=== PATIENT | female | born 1990 | race African-American/Black ===

== ENCOUNTER 2018-08-19 13:45 | Emergency (ER) | payer MEDICAID, OTHER ==
[~2018-08-19] VITALS: Ht 172.7 cm; Wt 77.0 kg
[2018-08-19 20:54] LABS: BASOPHILS % 0.2 % (0.0-2.0); EOSINOPHILS % 1.4 % (0.0-5.0); HEMATOCRIT. 37.2 % (36.0-48.0); HEMOGLOBIN. 12.2 g/dL (12.0-16.0); LYMPHOCYTES % 20.5 % (20.0-50.0); MEAN CORPUSCULAR HEMOGLOBIN 27.2 pg (28.0-32.0); MEAN CORPUSCULAR VOLUME 82.7 fL (81.0-99.0); NEUTROPHILS % 68.9 % (40.0-76.0); PLATELET 246 x1000/uL (130-400); RED CELL DISTRIBUTION WIDTH 14.1 % (11.6-14.6)
[2018-08-19 20:59] LABS: CHLORIDE 107 mEq/L (98-107)
[2018-08-19 21:25] LABS: B-HCG QUANTITATIVE 2241 mIU/mL (<3)
[2018-08-19] MEDS ORDERED: POTASSIUM CHLORIDE 20MEQ TABLET SR PO ONE (21:30)
[2018-08-19 21:54] LABS: CLARITY URINE TURBID (CLEAR); KETONES URINE 3+ (NEGATIVE); LEUKOCYTE ESTERASE URINE 3+ (NEGATIVE); NITRITE URINE POSITIVE (NEGATIVE); OCCULT BLOOD URINE 3+ (NEGATIVE); PROTEIN URINE 2+ (NEGATIVE)
[2018-08-19 22:03] LABS: COLOR URINE BLOODY (YELLOW)
[2018-08-19 23:07] VITALS: BP 130/69
== END 2018-08-19 23:25 | disposition home or self-care (01) ==
LOC: ER 13:45
DX: O03.9 Complete or unspecified spontaneous abortion without complication (principal); O26.891 Other specified pregnancy related conditions, first trimester; F17.210 Nicotine dependence, cigarettes, uncomplicated; Z3A.12 12 weeks gestation of pregnancy
CPT/HCPCS: 36415; 76801; 76817; 80053; 81003; 84702; 85025; 86850; 86900; 86901; 99284; 99406; Z7610

== ENCOUNTER 2019-12-02 05:07 | Inpatient (IN) | payer OTHER ==
[~2019-12-02] VITALS: Ht 174 cm; Wt 107.0 kg
[2019-12-02] MEDS ORDERED: PNV1TABL50 PO (05:16)
[2019-12-02] MEDS ORDERED: DEXT 5%/LR + PITOCIN 20UNITS/L 1,000 ML IV SCH ×2 (05:42→07:22)
[2019-12-02] MEDS ORDERED: LACTATED RINGERS 1,000 ML IV SCH (05:42)
[2019-12-02] MEDS ORDERED: MISOPROSTOL 100MCG TABLET VG SCH (05:45)
[2019-12-02] MEDS ORDERED: NALOXONE HCL 0.4 MG/ML 1ML VIAL IM PRN (05:45)
[2019-12-02] MEDS ORDERED: BUTORPHANOL TARTRATE 2 MG/ML VIAL IV PRN (05:45)
[2019-12-02] MEDS ORDERED: LIDOCAINE HCL 1% 20ML VIAL (Pyxis) INJ INFIL SCH (05:45)
[2019-12-02] MEDS ORDERED: MINERAL OIL 30ML BOTTLE TOP NR (05:45)
[2019-12-02] MEDS ORDERED: PENICILLIN G POTASSIUM 5 MMU in DEXT 5% WATER 100 ML IV NR (06:00)
[2019-12-02 06:27] LABS: CHLORIDE 110 mEq/L (98-107); CLARITY URINE CLOUDY (CLEAR); COLOR URINE YELLOW (YELLOW); KETONES URINE NEGATIVE (NEGATIVE); LEUKOCYTE ESTERASE URINE 2+ (NEGATIVE); NITRITE URINE NEGATIVE (NEGATIVE); OCCULT BLOOD URINE 3+ (NEGATIVE); PH URINE 5.5 (4.5-8.0); PROTEIN URINE TRACE (NEGATIVE); SPECIFIC GRAVITY URINE 1.018 (1.005-1.030); UROBILINOGEN URINE 0.2 E.U./dL (0.2-1.0)
[2019-12-02 06:31] LABS: INR 0.9; PARTIAL THROMBOPLASTIN TIME 24.5 sec (23.4-31.0); PROTHROMBIN TIME 9.8 sec (9.6-11.0)
[2019-12-02 06:55] LABS: *AMPHETAMINES SCREEN URINE NEGATIVE (NEGATIVE); *BARBITURATES SCREEN URINE NEGATIVE (NEGATIVE)
[2019-12-02 06:56] LABS: *BENZODIAZEPINES SCREEN URINE NEGATIVE (NEGATIVE); *COCAINE SCREEN URINE NEGATIVE (NEGATIVE); CANNABINOID URINE SCREEN NEGATIVE (NEGATIVE); METHADONE URINE SCREEN NEGATIVE (NEGATIVE); OPIATES URINE SCREEN NEGATIVE (NEGATIVE); PHENCYCLIDINE URINE SCREEN NEGATIVE (NEGATIVE)
[2019-12-02 07:14] LABS: HEPATITIS B SURFACE ANTIGEN NEGATIVE
[2019-12-02] MEDS ORDERED: LANOLIN OINT 7GM TUBE TOP PRN (07:30)
[2019-12-02] MEDS ORDERED: RHO(D) IMMUNE GLOBULIN 300 MCG/SYR IM PRN (07:30)
[2019-12-02] MEDS ORDERED: DIPHENHYDRAMINE 25MG CAPSULE PO PRN (07:30)
[2019-12-02] MEDS ORDERED: METHYLERGONOVINE MALEATE 0.2 MG/ML IM PRN (07:30)
[2019-12-02] MEDS ORDERED: IBUPROFEN 400MG TABLET PO PRN (07:30)
[2019-12-02 09:00] VITALS: BP 110/64
[2019-12-02] MEDS ORDERED: PRENATAL VIT/FE FUMARATE/FA TABLET PO SCH (09:00)
[2019-12-02 09:30] VITALS: BP 97/65
[2019-12-02] MEDS ORDERED: PENICILLIN G POTASSIUM 2.5 MMU in DEXTROSE 5% WATER 50 ML IV SCH (10:00)
[2019-12-02] MEDS: IBUPROFEN 800MG TABLET PO PRN (13:57)
[2019-12-02 17:00] VITALS: BP 98/51
[2019-12-02 19:20] VITALS: BP 115/73
[2019-12-02] MEDS ORDERED: DOCUSATE SODIUM 100MG CAPSULE PO SCH (21:00)
[2019-12-02 23:45] VITALS: BP 113/69
[2019-12-03] MEDS: IBUPROFEN 800MG TABLET PO PRN (03:29)
[2019-12-03 06:23] LABS: BASOPHILS % 0.2 % (0.0-2.0); EOSINOPHILS % 1.2 % (0.0-5.0); HEMATOCRIT. 34.5 % (36.0-48.0); HEMOGLOBIN. 11.5 g/dL (12.0-16.0); LYMPHOCYTES % 15.9 % (20.0-50.0); MEAN CORPUSCULAR HEMOGLOBIN 27.5 pg (28.0-32.0); MEAN CORPUSCULAR VOLUME 82.3 fL (81.0-99.0); MEAN PLATELET VOLUME 8.8 fl (7.4-10.4); MONOCYTES % 7.2 % (2.0-8.0); NEUTROPHILS % 75.5 % (40.0-76.0); PLATELET 246 x1000/uL (130-400); RED CELL DISTRIBUTION WIDTH 13.5 % (11.6-14.6)
[2019-12-03] MEDS ORDERED: IBUP-2030 PO (07:06)
[2019-12-03] MEDS ORDERED: CEFA500C2 MT (07:06)
[2019-12-03 08:00] VITALS: BP 111/70
== END 2019-12-03 11:50 | disposition home or self-care (01) | DRG 560 ==
LOC: 8 EST LDRP 05:07 → OBSVTOIN 05:07 → 8EST 08:20
PROVIDERS: ADMIT Obstetrics & Gynecology; ATTEND Obstetrics & Gynecology
PROC: 10E0XZZ Delivery of Products of Conception, External Approach (ICD-10-PCS; principal; 2019-12-02)
DX: O69.81X0 Labor and delivery complicated by cord around neck, without compression, not applicable or unspecified (principal); O34.211 Maternal care for low transverse scar from previous cesarean delivery; D57.3 Sickle-cell trait; O99.02 Anemia complicating childbirth; Z37.0 Single live birth; Z3A.39 39 weeks gestation of pregnancy
CPT/HCPCS: 36415; 80053; 80305; 81003; 85025; 85384; 86592; 86703; 86762; 86850; 86900; 87340; 99281; J0595; J2540; J2590; J3490; J7060; J7120